=== PATIENT | female | born 1990 | race Caucasian/White ===

== ENCOUNTER 2020-01-17 08:04 | Emergency (ER) | payer OTHER, SELFPAY ==
[~2020-01-17] VITALS: Ht 170.2 cm; Wt 70.3 kg
[2020-01-17 08:06] VITALS: BP 139/87; Ht 170.2 cm; Wt 70.3 kg
== END 2020-01-17 09:24 | disposition home or self-care (01) ==
LOC: ED 08:04
DX: U07.1 COVID-19 (principal)
CPT/HCPCS: U0003